=== PATIENT | female | born 1960 | race Two or more races ===

== ENCOUNTER → 2020-09-22 | Outpatient (CLI) | payer OTHER ==
[2020-09-23 08:06] LABS: RPR Non Reactive (Non Reactive)
== END | disposition home or self-care (01) ==
LOC: LAB 09:13
PROVIDERS: ATTEND Obstetrics & Gynecology
DX: Z20.2 Contact with and (suspected) exposure to infections with a predominantly sexual mode of transmission (principal)
CPT/HCPCS: 36415; 86592; 86703; 86704; 86705; 86706; 87340

== ENCOUNTER 2020-10-01 08:39 | Emergency (ER) | payer OTHER ==
[~2020-10-01] VITALS: Ht 180.3 cm; Wt 81.6 kg
[2020-10-01 09:33] LABS: Urine Bacteria FEW /hpf (None Seen); Urine Blood Negative /uL (Negative); Urine Specific Gravity 1.019 (1.001-1.035); Urine WBC <1 /hpf (0 - 5)
[2020-10-01 09:45] LABS: Basophils # (auto) 0.1 10 ^3/uL (0-0.2); Basophils % (auto) 1.4 % (0.0-2.0); Eosinophils # (auto) 0 10 ^3/uL (0-0.8); Eosinophils % (auto) 0.8 % (0.0-7.0); Hematocrit 39.7 % (36.0-46.0); Hemoglobin 13.3 g/dL (12.2-16.2); Lymphocytes % (auto) 37.7 % (10.0-50.0); Mean Corpuscular Hemoglobin 29.6 pg (28.0-32.0); Mean Corpuscular Hgb Conc. 33.6 g/dL (32.0-36.0); Mean Corpuscular Volume 88.2 fL (80.0-100.0); Monocytes # (auto) 0.3 10 ^3/uL (0-1.3); Monocytes % (auto) 6.1 % (0.0-12.0); Neutrophils # (auto) 2.9 10 ^3/uL (1.6-8.6); Nucleated Red Blood Cells % 0.1 %; Platelet Count (auto) 343 10^3/uL (140-450); White Blood Cell 5.3 10^3/uL (4.4-10.8)
[2020-10-01 10:00] LABS: Albumin 3.8 g/dL (3.4-5.0); Potassium 3.2 mmol/L (3.5-5.1)
[2020-10-01 10:04] LABS: BUN/Creatinine Ratio 12.9; Bilirubin, Total 0.6 mg/dL (0.2-1.0); Total Protein 8.3 g/dL (6.4-8.2)
[2020-10-01 10:25] VITALS: BP 170/95
[2020-10-01] MEDS ORDERED: KETOROLAC TROMETH 60MG/2ML VIAL IM ONE (11:00)
[2020-10-01] MEDS ORDERED: POTASSIUM CHL 20 Meq TABLET PO ONE (12:15)
== END 2020-10-01 12:13 | disposition home or self-care (01) ==
LOC: ER 08:39
DX: S39.011A Strain of muscle, fascia and tendon of abdomen, initial encounter (principal); K76.0 Fatty (change of) liver, not elsewhere classified; I10 Essential (primary) hypertension; X58.XXXA Exposure to other specified factors, initial encounter; Y93.89 Activity, other specified; Y92.89 Other specified places as the place of occurrence of the external cause; Y99.8 Other external cause status
CPT/HCPCS: 36415; 74176; 76705; 80053; 81001; 85025; 93005; 96372; 99285; J1885

== ENCOUNTER 2020-11-25 16:26 | Emergency (ER) | payer OTHER ==
[~2020-11-25] VITALS: Ht 149.9 cm; Wt 83.5 kg
[2020-11-25 18:56] VITALS: BP 125/70
[2020-11-25] MEDS ORDERED: KETOROLAC TROMETH 60MG/2ML VIAL IM ONE (19:30)
== END 2020-11-25 19:53 | disposition home or self-care (01) ==
LOC: ER 16:26
DX: S83.91XA Sprain of unspecified site of right knee, initial encounter (principal); E66.8 Other obesity; Z68.37 Body mass index [BMI] 37.0-37.9, adult; I10 Essential (primary) hypertension; W18.40XA Slipping, tripping and stumbling without falling, unspecified, initial encounter; Y93.89 Activity, other specified; Y92.89 Other specified places as the place of occurrence of the external cause; Y99.8 Other external cause status
CPT/HCPCS: 73562; 96372; 99283; J1885

== ENCOUNTER 2024-05-09 08:28 | Inpatient (IN) | payer BC, MEDICARE, OTHER ==
[~2024-05-09] VITALS: Ht 149.9 cm; Wt 94.2 kg
--- NOTE | 2024-05-09 08:39 | ED.PDOC ---
HPI Comments 64 y.o female with PMH of HTN, presents to the ED for a chief complaint of substernal chest pain radiating to her left arm associated with nausea that started 2-3 days ago. Patient reports pain is constant and worsened today while getting ready for work. Patient has had similar pain in the past, was seen by a gluing machine operator but never had an angiogram done. Patient denies any vomiting, abdominal pain, fever, chills, or leg swelling. No history of tobacco, substance or alcohol use. Time Seen by MD: 08:32 Primary Care Provider: CARINA Clifford Notes: Nurses Notes, Medications, Allergies Allergies: Coded Allergies: NO KNOWN ALLERGIES (Unverified , 10/01/20) Information Source: Patient Mode of Arrival: Ambulatory Severity: Moderate Timing: Days Duration: Since onset Location: Substernal Radiation: Arm (L) Onset: At Rest Cardiac Risk Factors: HTN PE Risk Factors: None History of: Similar pain in past Modifying Factors: Nothing Associated Signs and Symptoms: N/V Past Medical History PAST MEDICAL HISTORY: HTN Surgical History: Denies all surgeries KITCHEN MECHANIC History: Denies all KITCHEN MECHANIC Hx Family History Family History: Reviewed,noncontributory to illness Social History Smoker: Non-Smoker Alcohol: Denies ETOH Use Drugs: Denies Drug Use Lives In: Home Constitutional: denies: chills, diaphoresis, fatigue, fever, malaise, sweats, weakness, others EENTM: denies: blurred vision, double vision, ear bleeding, ear discharge, ear drainage, ear pain, ear ringing, eye pain, eye redness, hearing loss, mouth pain, mouth swelling, nasal discharge, nose bleeding, nose congestion, nose pain, photophobia, tearing, throat pain, throat swelling, voice changes, others Respiratory: denies: cough, hemoptysis, orthopnea, SOB at rest, shortness of breath, SOB with excertion, stridor, wheezing, others Cardiovascular: reports: chest pain, left arm pain; denies: dizzy spells, diaphoresis, Dyspnea on exertion, edema, irregular heart beat, lightheadedness, palpitations, PND, syncope, others Gastrointestinal: reports: nausea; denies: abdomen distended, abdominal pain, blood streaked bowels, constipated, diarrhea, dysphagia, difficulty swallowing, hematemesis, melena, poor appetite, poor fluid intake, rectal bleeding, rectal pain, vomiting, others Genitourinary: denies: abnormal vagina bleeding, burning, dyspareunia, dysuria, flank pain, frequency, hematuria, incontinence, pain, , vagina discharge, urgency, others Neurological: denies: dizziness, fainting, headache, left sided numbness, left sided weakness, numbness, paresthesia, pre-existing deficit, right sided numbness, right sided weakness, seizure, speech problems, tingling, tremors, weakness, others Musculoskeletal: denies: back pain, gout, joint pain, joint swelling, muscle pain, muscle stiffness, neck pain, others Integumetry: denies: bruises, change in color, change in hair/nails, dryness, laceration, lesions, lumps, rash, wounds, others Allergic/Immunocompromised: denies: Difficulty Healing, Frequent Infections, Hives, Itching, others Hematologic/Lymphatic: denies: anemia, blood clots, easy bleeding, easy bruising, swollen glands, others Endocrine: denies: excessive hunger, excessive sweating, excessive thirst, excessive urination, flushing, intolerance to cold, intolerance to heat, unexplained weight gain, unexplained weight loss, others Psychiatric: denies: anxiety, bipolar disorder, depression, hopeless, panic dis order, schizophrenia, sleepless, suicidal, others All Other Systems: Reviewed and Negative Physical Exam General Appearance: Moderate Distress HEENT: Normal ENT Inspection, Pharynx Normal, TMs Normal Neck: Full Range of Motion, Non-Tender, Normal, Normal Inspection Respiratory: Chest Non-Tender, Lungs Clear, No Accessory Muscle Use, No Respiratory Distress, Normal Breath Sounds Cardiovascular: No Edema, No JVD, No Murmur, No Gallop, Normal Peripheral Pulses, Regular Rate/Rhythm Breast Exam: Deferred Gastrointestinal: No Organomegaly, Non Tender, No Pulsatile Mass, Normal Bowel Sounds, Soft Genitalia: Deferred Pelvic: Deferred Rectal: Deferred Extremities: No calf tenderness, Normal capillary refill, Normal inspection, Normal range of motion, Non-tender, No pedal edema Musculoskeletal : Apperance: Normal Neurologic: Alert, assistant program manager II-XII nml as Tested, No Motor Deficits, Normal Affect, Normal Mood, No Sensory Deficits Cerebellar Function: NOT DONE Reflexes: NOT DONE Skin: Dry, Normal Color, Warm Peripheral Pulses: 3+ Radial (R), 3+ Radial (L) Lymphatic: No Adenopathy Was a procedure done? Was a procedure done?: No CP Differential Dx Differential Diagnosis: A-fib, A-Flutter, Angina, Anxiety / Panic Attack, Atrial Dysrhythmia, Electrolyte Disorder, N/A Differential Diagnosis: Angina, Chest Wall Pain, Costochondritis, Myocardial Infarction, Pericarditis X-Ray, Labs, Meds, VS Vital Signs Date Time Temp Pulse Resp B/P (MAP) Pulse Ox O2 Delivery O2 Flow Rate FiO2 05/09/24 08:51 159/83 05/09/24 08:47 86 05/09/24 08:47 98.9 86 18 159/83 (108) 99 98.9 05/09/24 08:34 96 05/09/24 08:30 98.6 97 18 155/84 (107) 97 98.6 05/09/24 08:30 98.6 97 18 155/84 (107) 99 Lab Test 05/09/24 08:50 05/09/24 08:39 Range/Units Urine Color Light-yellow Yellow Urine Clarity Clear Clear Urine pH 6.5 5.0-9.0 Urine Specific [place] 1.018 1.001-1.035 Urine Protein Trace H Negative Urine Ketones Negative Negative Urine Blood Negative Negative /uL Urine Nitrite Negative Negative Urine Bilirubin Negative Negative Urine Urobilinogen Normal Negative mg/dL Urine Leukocyte Esterase Negative Negative /uL Urine RBC 2 0 - 4 /hpf Urine WBC <1 0 - 5 /hpf Urine Squamous Epithelial Cells Few <5 /hpf Urine Bacteria None seen None Seen /hpf Urine Glucose Normal Normal mg/dL White Blood Count 6.3 4.4-10.8 10^3/uL Red Blood Count 4.59 4.0-5.20 10^6/uL Hemoglobin 13.7 12.2-16.2 g/dL Hematocrit 40.2 36.0-46.0 % Mean Corpuscular Volume 87.8 80.0-100.0 fL Mean Corpuscular Hemoglobin 29.8 28.0-32.0 pg Mean Corpuscular Hemoglobin Concent 34.0 32.0-36.0 g/dL Red Cell Distribution Width 13.6 11.8-14.3 % Platelet Count 365 140-450 10^3/uL Mean Platelet Volume 7.2 6.9-10.8 fL Neutrophils (%) (Auto) 48.5 37.0-80.0 % Lymphocytes (%) (Auto) 42.3 10.0-50.0 % Monocytes (%) (Auto) 7.0 0.0-12.0 % Eosinophils (%) (Auto) 1.3 0.0-7.0 % Basophils (%) (Auto) 0.9 0.0-2.0 % Neutrophils # (Auto) 3.1 1.6-8.6 10 ^3/uL Lymphocytes # (Auto) 2.7 0.4-5.4 10 ^3/uL Monocytes # (Auto) 0.4 0-1.3 10 ^3/uL Eosinophils # (Auto) 0.1 0-0.8 10 ^3/uL Basophils # (Auto) 0.1 0-0.2 10 ^3/uL Nucleated Red Blood Cells 0.1 % Sodium Level 140 136-145 mmol/L Potassium Level 3.0 L 3.5-5.1 mmol/L Chloride Level 106 98-107 mmol/L Carbon Dioxide Level 27 20-31 mmol/L Anion Gap 7 5-15 Blood Urea Nitrogen 13 9-23 mg/dL Creatinine 0.82 0.550-1.02 mg/dL Glomerular Filtration Rate Calc 79 >90 mL/min BUN/Creatinine Ratio 15.9 10.0-20.0 Serum Glucose 123 H 74-106 mg/dL Calcium Level 10.3 8.7-10.4 mg/dL Troponin I High Sensitivity < 3 L </=34 ng/L Current Medications Medications (Trade) Dose Ordered Sig/Lc Route Start Time Stop Time Status Last Admin Aspirin 325 mg ONCE ONCE PO 05/09/24 08:45 05/09/24 08:46 DC 05/09/24 08:49 Nitroglycerin (Ntrostat Sublingual) 0.4 mg ONCE ONCE SL 05/09/24 08:45 05/09/24 08:46 DC 05/09/24 08:51 Patient alert. Complaining of chest pain. Has risk factors for coronary artery disease. Vitals stable. Answering all questions. EKG reviewed does not show any acute changes. Was given aspirin. Reviewed her history. Explained to the patient. Continue cardiac monitoring. Time of 1ST Reevaluation: 09:30 Reevaluation 1ST: Unchanged Patient Education/Counseling: Diagnosis, Treatment, Prognosis Family Education/Counseling: No Family Present Additional Information Ordered Test-PHA and LAB Reviewed Results- LAB, US echo Interpreted [id number] and agree with radiology Discuss Tx/Results-medical personnel, pt Departure 1 Departure Time of Disposition: 08:42 Impression: Primary Impression: Chest pain of unknown etiology Disposition: ADMITTED INPATIENT Admit to: Med Surg Condition: Guarded Critical Care Note Critical Care Time?: Yes (45 min-critical care time only) Stability Stability form required: No Heart Score Heart Score: Heart Score Response (Comments) Value History Slightly Suspicious 0 EKG Normal 0 Age >65 2 Risk Factors >3 or Hx ASHD 2 Troponin Normal limit 0 Total 4 I personally scribed for KERA JUAN MD ([email or web address]) on 05/09/24 at 08:39. Electronically submitted by Lawanda Salvador ([facility]). I personally scribed for KERA JUAN MD ([email or web address]) on 05/09/24 at 10:57. Electronically submitted by Lawanda Salvador ([facility]). KERA JUAN MD May 09, 2024 08:39
[2024-05-09] MEDS: ASPirin 325 MG TAB PO ONE (08:49)
[2024-05-09 08:51] LABS: Basophils # (auto) 0.1 10 ^3/uL (0-0.2); Basophils % (auto) 0.9 % (0.0-2.0); Eosinophils # (auto) 0.1 10 ^3/uL (0-0.8); Eosinophils % (auto) 1.3 % (0.0-7.0); Hematocrit 40.2 % (36.0-46.0); Hemoglobin 13.7 g/dL (12.2-16.2); Lymphocytes # (auto) 2.7 10 ^3/uL (0.4-5.4); Lymphocytes % (auto) 42.3 % (10.0-50.0); Mean Corpuscular Hemoglobin 29.8 pg (28.0-32.0); Mean Corpuscular Volume 87.8 fL (80.0-100.0); Monocytes # (auto) 0.4 10 ^3/uL (0-1.3); Neutrophils # (auto) 3.1 10 ^3/uL (1.6-8.6); Neutrophils % (auto) 48.5 % (37.0-80.0); Nucleated Red Blood Cells % 0.1 %; Platelet Count (auto) 365 10^3/uL (140-450); Red Blood Cells 4.59 10^6/uL (4.0-5.20); Red Cell Distribution Width 13.6 % (11.8-14.3); White Blood Cell 6.3 10^3/uL (4.4-10.8)
[2024-05-09] MEDS: NITROGLYCERIN 0.4 MG SL TAB SL ONE (08:51)
[2024-05-09 08:58] LABS: Urine Bacteria None Seen /hpf (None Seen)
[2024-05-09 09:27] LABS: Chloride 106 mmol/L (98-107); Sodium 140 mmol/L (136-145)
[2024-05-09 09:28] LABS: Anion Gap 7 (5-15); Calcium 10.3 mg/dL (8.7-10.4); Carbon Dioxide 27 mmol/L (20-31)
[2024-05-09 09:33] LABS: BUN/Creatinine Ratio 15.9 (10.0-20.0); Blood Urea Nitrogen 13 mg/dL (9-23); Glucose 123 mg/dL (74-106)
[2024-05-09 09:36] LABS: Urine Blood Negative /uL (Negative); Urine Clarity Clear (Clear); Urine Color Light-Yellow (Yellow); Urine Protein, UAD TRACE (Negative); Urine Specific Gravity 1.018 (1.001-1.035); Urine Urobilinogen Normal (Negative); Urine WBC <1 /hpf (0 - 5); Urine pH 6.5 (5.0-9.0)
[2024-05-09] MEDS ORDERED: MORPHINE SULFATE INJ 2 MG/ml SYRG IV PRN (13:00)
[2024-05-09] MEDS ORDERED: ONDANSETRON HCL 4 MG/2 ML VIAL IV PRN (13:00)
[2024-05-09] MEDS ORDERED: NITROGLYCERIN 0.4 MG SL TAB SL PRN (13:00)
--- NOTE | 2024-05-09 13:10 | DVHHP2 ---
History of Present Illness Reason for Visit: chest pain History of Present Illness Mary العراقي is a 64YO F with pmHx of COPD, HLD, and HTN who presents to the ED with chest pain x3 days. Patient reports that the chest pain radiates to the left arm it is stabbing in nature intermittent and currently 4/10 pain. Patient also reports that she has ongoing palpitations for the last 3 years in which she was seeing a catalyst operator in [facility] for, however upon moving up here she has not established a catalyst operator in the last 4 months. 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 Patient reports that she is compliant with her medications. Reports that her blood pressure systolics are around the 140s. She also reports that her catalyst operator in [facility] advised her that she has hardening of the arteries. Patient reports that resting makes the pain better. Patient denies shortness of breath, fever, chills, abdominal pain, headache, lightheadedness, and dizziness. Cardiovascular: HTN, hyperipidemia Pulmonary: COPD Past Surgical History: Total knee replacement (right) Family History: CVA (mom) Smoke: Quit ALCOHOL: none Drugs: None Lives: with Family Domestic Violence: Neg Review of Systems Constitutional: No: Fever, Chills, Sweats, Weakness, Malaise, Other Eyes: No: Pain, Vision change, Conjunctivae inflammation, Eyelid inflammation, Other, Redness ENT: No: Ear pain, Ear discharge, Nose pain, Nose discharge, Nose congestion, Mouth pain, Mouth swelling, Throat pain, Throat swelling, Other Respiratory: No: Cough, Dry, Shortness of breath, SOB with excertion, Wheezing, Hemoptysis, Pleuritic Pain, Sputum, Wheezing, Other Cardiovascular: Chest Pain; No: Palpitations, Orthopnea, Paroxysmal Noc. Dyspnea, Edema, Lt Headedness, Other Gastrointestinal: No: Nausea, Vomiting, Abdominal Pain, Diarrhea, Constipation, Melena, Hematochezia, Other Genitourinary: No Dysuria, No Frequency, No Incontinence, No Hematuria, No Retention, No Other Musculoskeletal: arm pain; No: other, neck pain, shoulder pain, back pain, hand pain, leg pain, foot pain Skin: No: Rash, Lesions, Jaundice, Bruising, Other Neurological: No: Weakness, Numbness, Incoordination, Change in speech, Confusion, Seizures, Other Allergies: Coded Allergies: NO KNOWN ALLERGIES (Unverified , 10/01/20) Medications Current Medications Medications Dose Ordered Sig/Lc Route Start Time Stop Time Status Last Admin Dose Admin Aspirin 81 mg DAILY PO 05/10/24 10:00 UNV Morphine Sulfate 2 mg Q30MP PRN IV 05/09/24 13:00 UNV Acetaminophen 650 mg Q6HP PRN PO 05/09/24 13:00 UNV Lorazepam 0.5 mg Q6HP PRN PO 05/09/24 13:00 UNV Docusate Sodium 100 mg DAILY PO 05/10/24 10:00 UNV Nitroglycerin 0.4 mg Q5MINP PRN SL 05/09/24 13:00 UNV Ondansetron HCl 4 mg Q4HP PRN IV 05/09/24 13:00 UNV Nitroglycerin 0.4 mg Q5MINP PRN SL 05/09/24 13:00 UNV Morphine Sulfate 2 mg Q30M PRN IV 05/09/24 13:00 UNV Exam Vital Signs Vital Signs Date Time Temp Pulse Resp B/P (MAP) Pulse Ox O2 Delivery O2 Flow Rate FiO2 05/09/24 08:51 159/83 05/09/24 08:47 86 05/09/24 08:47 98.9 18 99 98.9 General Appearance: Oriented X3, Cooperative, No acute distress HEENT: Atraumatic, PERRLA, EOMI, Mucous membr. moist/pink Respiratory: Clear to auscultation, Normal air movement Cardiovascular: Regular rate, Normal S1, Normal S2, No murmurs Abdominal: Normal bowel sounds, Soft, No tenderness, No hepatospenomegaly, No masses Extremities: No clubbing, No cyanosis, No edema, Normal pulses, No tenderness/swelling Skin: No rashes, No breakdown, No significant lesion Neuro: Normal gait, Normal speech, Strength at 5/5 X4 ext, Normal tone, Sensation intact Psych/Mental Status: Mental status NL, Mood NL Labs/Xrays Labs Test 05/09/24 08:50 05/09/24 08:39 Range/Units Urine Color Light-yellow Yellow Urine Clarity Clear Clear Urine pH 6.5 5.0-9.0 Urine Specific [place] 1.018 1.001-1.035 Urine Protein Trace H Negative Urine Ketones Negative Negative Urine Blood Negative Negative /uL Urine Nitrite Negative Negative Urine Bilirubin Negative Negative Urine Urobilinogen Normal Negative mg/dL Urine Leukocyte Esterase Negative Negative /uL Urine RBC 2 0 - 4 /hpf Urine WBC <1 0 - 5 /hpf Urine Squamous Epithelial Cells Few <5 /hpf Urine Bacteria None seen None Seen /hpf Urine Glucose Normal Normal mg/dL White Blood Count 6.3 4.4-10.8 10^3/uL Red Blood Count 4.59 4.0-5.20 10^6/uL Hemoglobin 13.7 12.2-16.2 g/dL Hematocrit 40.2 36.0-46.0 % Mean Corpuscular Volume 87.8 80.0-100.0 fL Mean Corpuscular Hemoglobin 29.8 28.0-32.0 pg Mean Corpuscular Hemoglobin Concent 34.0 32.0-36.0 g/dL Red Cell Distribution Width 13.6 11.8-14.3 % Platelet Count 365 140-450 10^3/uL Mean Platelet Volume 7.2 6.9-10.8 fL Neutrophils (%) (Auto) 48.5 37.0-80.0 % Lymphocytes (%) (Auto) 42.3 10.0-50.0 % Monocytes (%) (Auto) 7.0 0.0-12.0 % Eosinophils (%) (Auto) 1.3 0.0-7.0 % Basophils (%) (Auto) 0.9 0.0-2.0 % Neutrophils # (Auto) 3.1 1.6-8.6 10 ^3/uL Lymphocytes # (Auto) 2.7 0.4-5.4 10 ^3/uL Monocytes # (Auto) 0.4 0-1.3 10 ^3/uL Eosinophils # (Auto) 0.1 0-0.8 10 ^3/uL Basophils # (Auto) 0.1 0-0.2 10 ^3/uL Nucleated Red Blood Cells 0.1 % Sodium Level 140 136-145 mmol/L Potassium Level 3.0 L 3.5-5.1 mmol/L Chloride Level 106 98-107 mmol/L Carbon Dioxide Level 27 20-31 mmol/L Anion Gap 7 5-15 Blood Urea Nitrogen 13 9-23 mg/dL Creatinine 0.82 0.550-1.02 mg/dL Glomerular Filtration Rate Calc 79 >90 mL/min BUN/Creatinine Ratio 15.9 10.0-20.0 Serum Glucose 123 H 74-106 mg/dL Calcium Level 10.3 8.7-10.4 mg/dL Troponin I High Sensitivity < 3 L </=34 ng/L EXAM: XY CHEST XRAY 1 VIEW Indication: chest pain Technique: Single frontal view of the chest was obtained Comparison: None FINDINGS: Lines and Tubes: None Lungs: No focal consolidation. Pleura: No effusion. No pneumothorax. Cardiomediastinal contours: Unremarkable Bones: No acute osseous abnormality. IMPRESSION: No acute cardiopulmonary disease. Assessment/Plan Assessment/Plan Assessment/Plan: Atypical chest pain r/o ACS ekg - sr, left anterior fasicular block cxr labs echo acs protocol asa statin ekg am labs am trend trop trop negative ua uds lipid panel tsh cards cx Hypokalemia replete lytes Transaminitis HLD continue home medication - rosuvastatin GI cx HTN continue home medications - amlodipine and losartan COPD monitor no home medications FEN/PPX cardiac diet hl Patient ambulating not indicated for DVT ppx PUD prophylaxis not indicated no history of GERD Labs in a.m. 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 Procedure Category Date Status Time * Cardiology Consult CONS 05/09/24 Transmitted 12:52 Admit ADMIT 05/09/24 Transmitted 12:52 Code Status CODE 05/09/24 Transmitted 12:52 Vital Signs KIMANI 05/09/24 In Process 12:52 Medical Staff Physician KIMANI 05/09/24 In Process 12:52 Cardiac DIET 05/09/24 Transmitted Diet-2gna,Lofat,Lochol Lunch Aspirin Tablet PHA 05/10/24 Logged 10:00 Morphine Sulfate PHA 05/09/24 Logged Injection 13:00 Acetaminophen Tablet PHA 05/09/24 Logged (Tylenol Tablet) 13:00 Lorazepam Tablet PHA 05/09/24 Logged (Ativan Tablet) 13:00 Docusate Sodium PHA 05/10/24 Logged Capsule (Colace 10:00 Complete Blood Count LAB 05/10/24 Verified 04:00 Comprehensive LAB 05/10/24 Verified Metabolic Panel 04:00 Nitroglycerin PHA 05/09/24 Logged Sublingual (Ntrostat 13:00 Ondansetron Hcl PHA 05/09/24 Logged (Zofran) 13:00 Electrocardigram EKG 05/09/24 Logged 12:52 Alum & Mag PHA 05/09/24 Logged Hydrox-Simethicone 13:00 Cardiac KIMANI 05/09/24 In Process Rehabilitation - Outpa Nitroglycerin PHA 05/09/24 Logged Sublingual (Ntrostat 13:00 Morphine Sulfate PHA 05/09/24 Logged Injection 13:00 Notify Of Changes [facility] 05/09/24 In Process From Base 12:52 Merchandising Coordinator For KIMANI 05/09/24 In Process 24 Hours 12:52 Emergency Dysrhythmia [facility] 05/09/24 In Process Protocol 12:52 Rhythm Strips Once [facility] 05/09/24 In Process Every Shift 12:52 Oxygen By Nasal RT 05/09/24 Transmitted Cannula 12:52 Lipid Panel LAB 05/09/24 Verified 13:08 Thyroid Stimulating LAB 05/09/24 Verified Hormone 13:08 Drug Screen LAB 05/09/24 Verified 13:08 Date of Service: May 09, 2024 Billing Provider: UMM HER Common Visit Codes: [id number] INP/OBS CARE (MOD) UMM HER May 09, 2024 13:10
[2024-05-09] MEDS ORDERED: ROSU5TAB24 PO (13:23)
[2024-05-09] MEDS ORDERED: AMLO1TAB23 PO (13:23)
[2024-05-09 13:48] LABS: Triglycerides 139 mg/dL (< 150)
[2024-05-09 13:50] LABS: HDL Cholesterol 54 mg/dL (40-59)
[2024-05-09 13:51] LABS: Cholesterol 236 mg/dL (< 200); LDL Cholesterol 158 mg/dL (< 100)
--- NOTE | 2024-05-09 13:51 | DVH ---
EXAM: XY CHEST XRAY 1 VIEW Indication: chest pain Technique: Single frontal view of the chest was obtained Comparison: None FINDINGS: Lines and Tubes: None Lungs: No focal consolidation. Pleura: No effusion. No pneumothorax. Cardiomediastinal contours: Unremarkable Bones: No acute osseous abnormality. IMPRESSION: No acute cardiopulmonary disease.
[2024-05-09] MEDS: MAALOX PLUS or MAALOX 30 ML PO ONE (17:28)
[2024-05-09] MEDS: POTASSIUM EFFERVESENT TAB 25 MEQ PO ONE (17:28)
[2024-05-09] MEDS: NITROGLYCERIN 0.4 MG SL TAB SL PRN (17:33)
[2024-05-09 18:35] VITALS: O2SAT 100
[2024-05-09] MEDS ORDERED: LOSA-533 PO (19:42)
[2024-05-09 20:00] VITALS: PULSE 64
[2024-05-09] MEDS: ACETAMINOPHEN 325 MG TAB PO PRN (20:33)
[2024-05-09 21:00] VITALS: BP 141/69; PULSE 65; RESP 20; TEMP 98.3; O2SAT 98
[2024-05-09] MEDS: MELATONIN 5 MG TAB PO SCH (21:58)
[2024-05-10] VITALS (8 sets, daily range): BP systolic 119–163; BP diastolic 66–85; PULSE 55–80; RESP 16–20; TEMP 96.7–98.4; O2SAT 97–100
[2024-05-10] MEDS: LORazepam 0.5 MG TAB PO PRN (00:50)
[2024-05-10 07:12] LABS: Basophils # (auto) 0 10 ^3/uL (0-0.2); Basophils % (auto) 0.8 % (0.0-2.0); Eosinophils # (auto) 0.1 10 ^3/uL (0-0.8); Eosinophils % (auto) 2.7 % (0.0-7.0); Hematocrit 37.8 % (36.0-46.0); Hemoglobin 12.8 g/dL (12.2-16.2); Lymphocytes # (auto) 1.6 10 ^3/uL (0.4-5.4); Lymphocytes % (auto) 41.4 % (10.0-50.0); Mean Corpuscular Hemoglobin 29.8 pg (28.0-32.0); Mean Corpuscular Volume 87.7 fL (80.0-100.0); Monocytes # (auto) 0.3 10 ^3/uL (0-1.3); Monocytes % (auto) 7.6 % (0.0-12.0); Neutrophils # (auto) 1.8 10 ^3/uL (1.6-8.6); Neutrophils % (auto) 47.5 % (37.0-80.0); Nucleated Red Blood Cells % 0.4 %; Platelet Count (auto) 303 10^3/uL (140-450); Red Blood Cells 4.31 10^6/uL (4.0-5.20); Red Cell Distribution Width 13.4 % (11.8-14.3); White Blood Cell 3.8 10^3/uL (4.4-10.8)
[2024-05-10 07:19] LABS: Alanine Aminotransferase 20 U/L (7-40); Albumin 4.4 g/dL (3.2-4.8); Alkaline Phosphatase 115 U/L (46-116); Anion Gap 8 (5-15); Aspartate Aminotransferase 14 U/L (13-40); BUN/Creatinine Ratio 13.2 (10.0-20.0); Bilirubin, Total 0.7 mg/dL (0.2-1.0); Blood Urea Nitrogen 9 mg/dL (9-23); Carbon Dioxide 29 mmol/L (20-31); Chloride 103 mmol/L (98-107); Potassium 3.5 mmol/L (3.5-5.1); Sodium 140 mmol/L (136-145); Total Protein 7.5 g/dL (5.7-8.2)
[2024-05-10 07:22] LABS: Glucose 114 mg/dL (74-106)
[2024-05-10] MEDS: DOCUSATE SOD 100 MG CAP PO SCH (09:11)
[2024-05-10] MEDS: ASPirin 81 mg TAB PO SCH (09:11)
[2024-05-10] MEDS: LOSARTAN POTASSIUM 25 MG TAB PO SCH ×2 (09:12→22:00)
[2024-05-10] MEDS: amLODIPine BESYLATE 5 MG TAB PO SCH (10:12)
--- NOTE | 2024-05-10 13:04 | DVHSR ---
APPROVED REPORT EXAM: Two-dimensional and M-mode echocardiogram with Doppler and color Doppler. Blood Pressure: 126/70 mmHg INDICATION EF RISK FACTORS Obesity: Height: 4'11, Weight: 210 DIMENSIONS LVDd4.5 (3.8-5.7cm)LA (2D)3.0 (1.9-4.0cm)Aortic Root2.5 (2.0-3.7cm) LVDs2.9 (2.5-4.0cm)LA (MM) (1.9-4.0cm)Aortic Cusp Exc1.0 (1.5-2.0cm) EF (%) 60.0 (55-70%)Rt. Atrium3.2 (1.9-4.0cm)Asc. Aorta3.3 cm IVSd0.9 (0.7-1.1cm)RV (D) (1.8-2.4cm) PWd0.7 (0.7-1.1cm) Mitral Valve MitralMitral Stenosis E wave0.61m/sMV Mean GR.mmHg A wave0.99m/sMV Peak GR.mmHg E/A ratio0.62D MVAcm2 DECEL [id number] 1/2 Timems Aortic Valve Aortic ValveAortic Stenosis V11.17m/Eulogio Mean GR.18mmHg V22.76m/Eulogio Peak GR.31mmHg LVOT Diameter1.9 (1.8-2.4cm)Doppler AVA1.20cm2 AI P 1/2 Cfrm304.52ms Pulmonic Valve V20.88m/s Tricuspid Valve TR Velocity2.04m/s [id number] Conclusion lvef 60% by visual estimate moderate LVH mild aortic regurg
--- NOTE | 2024-05-10 14:53 | DVHINCON2 ---
GI Consult Consult Note GI consult note Date of Consultation: 05/10/2024 Chief Complaint: Elevated LFTs Referring Physician: Dr. Galicia H&P: 64-year-old female admitted with chest pain, admits to feeling better at this time No abdominal pain Patient has nausea no vomiting. No hematemesis No history of GERD. No EGD in past Status post colonoscopy more than 10 years ago, diagnosed with diverticulosis No blood thinners Past Medical History: Cardiovascular: HTN, hyperipidemia Pulmonary: COPD Past Surgical History: Right total knee replacement Social History: NO smoking, drinking ETOH and use of illegal drugs. Family History: Noncontributory Review of Systems: Constitutional: no fever, chill, weight loss HEENT: no eye pain, no hearing loss, no oral lesion, no scleral icterus Heart: no chest pain, no chest pressure Lung: no cough, no dyspnea with exertion Abdomen: see HPI Physical exam: General: NAD, AAOX3 Chest: lung davey clear to auscultation Heart: RRR, no murmur Abdomen: non-distended, no tenderness to palpation, +BS Labs: Labs Test 05/10/24 06:17 05/09/24 08:50 05/09/24 08:39 Range/Units White Blood Count 3.8 #L 4.4-10.8 10^3/uL Red Blood Count 4.31 4.0-5.20 10^6/uL Hemoglobin 12.8 12.2-16.2 g/dL Hematocrit 37.8 36.0-46.0 % Mean Corpuscular Volume 87.7 80.0-100.0 fL Mean Corpuscular Hemoglobin 29.8 28.0-32.0 pg Mean Corpuscular Hemoglobin Concent 34.0 32.0-36.0 g/dL Red Cell Distribution Width 13.4 11.8-14.3 % Platelet Count 303 140-450 10^3/uL Mean Platelet Volume 7.6 6.9-10.8 fL Neutrophils (%) (Auto) 47.5 37.0-80.0 % Lymphocytes (%) (Auto) 41.4 10.0-50.0 % Monocytes (%) (Auto) 7.6 0.0-12.0 % Eosinophils (%) (Auto) 2.7 0.0-7.0 % Basophils (%) (Auto) 0.8 0.0-2.0 % Neutrophils # (Auto) 1.8 1.6-8.6 10 ^3/uL Lymphocytes # (Auto) 1.6 0.4-5.4 10 ^3/uL Monocytes # (Auto) 0.3 0-1.3 10 ^3/uL Eosinophils # (Auto) 0.1 0-0.8 10 ^3/uL Basophils # (Auto) 0 0-0.2 10 ^3/uL Nucleated Red Blood Cells 0.4 % Sodium Level 140 136-145 mmol/L Potassium Level 3.5 3.5-5.1 mmol/L Chloride Level 103 98-107 mmol/L Carbon Dioxide Level 29 20-31 mmol/L Anion Gap 8 5-15 Blood Urea Nitrogen 9 9-23 mg/dL Creatinine 0.68 0.550-1.02 mg/dL Glomerular Filtration Rate Calc 96 >90 mL/min BUN/Creatinine Ratio 13.2 10.0-20.0 Serum Glucose 114 H 74-106 mg/dL Calcium Level 10.0 8.7-10.4 mg/dL Total Bilirubin 0.7 0.2-1.0 mg/dL Aspartate Amino Transferase (AST) 14 13-40 U/L Alanine Aminotransferase (ALT) 20 7-40 U/L Alkaline Phosphatase 115 46-116 U/L Total Protein 7.5 5.7-8.2 g/dL Albumin 4.4 3.2-4.8 g/dL Urine Color Light-yellow Yellow Urine Clarity Clear Clear Urine pH 6.5 5.0-9.0 Urine Specific [place] 1.018 1.001-1.035 Urine Protein Trace H Negative Urine Ketones Negative Negative Urine Blood Negative Negative /uL Urine Nitrite Negative Negative Urine Bilirubin Negative Negative Urine Urobilinogen Normal Negative mg/dL Urine Leukocyte Esterase Negative Negative /uL Urine RBC 2 0 - 4 /hpf Urine WBC <1 0 - 5 /hpf Urine Squamous Epithelial Cells Few <5 /hpf Urine Bacteria None seen None Seen /hpf Urine Glucose Normal Normal mg/dL Troponin I High Sensitivity < 3 L </=34 ng/L Triglycerides Level 139 < 150 mg/dL Cholesterol Level 236 H < 200 mg/dL LDL Cholesterol 158 H < 100 mg/dL HDL Cholesterol 54 40-59 mg/dL Thyroid Stimulating Hormone (TSH) 1.56 0.55-4.78 uIU/mL Imaging: Assessment: Chest pain Diverticulosis Plan: Discussed with Dr. Irving Cardiology consult pending Advance diet as tolerated Outpatient follow-up in GI clinic for elective colonoscopy, next available appointment Thank you for this consult Date of Service: May 10, 2024 Billing Provider: NALINI VENEGAS Common Visit Codes: CONSULT ONLY Consultation Codes: [id number] CONSULT <45MIN NALINI VENEGAS May 10, 2024 14:53
--- NOTE | 2024-05-10 17:25 | DVHPN2 ---
Progress Note - Dictate Date Seen: May 10, 2024 Medical Necessity Reason Pt with a Central, PICC or Fol: No vital signs Vital Sign Date Time Temp Pulse Resp B/P (MAP) Pulse Ox O2 Delivery O2 Flow Rate FiO2 05/10/24 13:00 98.2 80 18 144/85 (104) 97 98.2 05/10/24 08:30 Room Air* 0 21 Total Intake and Output 05/09/24 05/09/24 05/10/24 15:00 23:00 07:00 Intake Total 1000 ml Balance 1000 ml medications Current Medications Medications Dose Ordered Sig/Lc Route Start Time Stop Time Status Last Admin Dose Admin Aspirin 81 mg DAILY PO 05/10/24 10:00 05/10/24 09:11 81 MG Morphine Sulfate 2 mg Q30MP PRN IV 05/09/24 13:00 Acetaminophen 650 mg Q6HP PRN PO 05/09/24 13:00 05/10/24 16:19 650 MG Lorazepam 0.5 mg Q6HP PRN PO 05/09/24 13:00 05/10/24 16:26 0.5 MG Docusate Sodium 100 mg DAILY PO 05/10/24 10:00 05/10/24 09:11 100 MG Nitroglycerin 0.4 mg Q5MINP PRN SL 05/09/24 13:00 05/10/24 09:11 0.4 MG Ondansetron HCl 4 mg Q4HP PRN IV 05/09/24 13:00 Nitroglycerin 0.4 mg Q5MINP PRN SL 05/09/24 13:00 UNV Morphine Sulfate 2 mg Q30M PRN IV 05/09/24 13:00 UNV Melatonin 5 mg HS PO 05/09/24 22:00 05/09/24 21:58 5 MG Amlodipine Besylate 10 mg DAILY PO 05/10/24 10:00 05/10/24 10:12 10 MG Losartan Potassium 25 mg BID PO 05/10/24 22:00 UNV Atorvastatin Calcium 40 mg HS PO 05/10/24 22:00 UNV Pantoprazole Sodium 40 mg DAILY@0600 PO 05/11/24 06:00 UNV Acetaminophen 650 mg Q6HP PRN PO 05/10/24 17:30 UNV Acetaminophen/ Hydrocodone Bitart 1 tab Q4HPRN PRN PO 05/10/24 17:30 UNV Morphine Sulfate 2 mg Q3HPRN PRN IV 05/10/24 17:30 UNV Nitroglycerin 0.4 mg Q5MINP PRN SL 05/10/24 17:30 UNV objective General Appearance: alert, no distress HEENT: EOMI, PERRLA, normal external inspect of ears, no icterus, no nasal drainage Neck: no carotid bruit, no jugular venous distention (JVD), no lymphadenopathy Chest: normal thorax Respiratory: clear to auscultation, normal air movement Cardiovascular: regular rate and rhythm, no diastolic murmur, no jugular venous distention (JVD), no rub, no systolic murmur Abdominal: soft, no hepatomegaly, no mass, no splenomegaly, no tenderness Genitourinary: grossly normal external Musculoskeletal: no joint tenderness, no swelling Extremities: normal pulses, no calf tenderness, no clubbing, no cyanosis, no edema Skin: no bruising, no jaundice, no rash Neurological: alert, No focal deficit laboratory and microbiology Laboratory Tests 05/10/24 06:17 Test 05/10/24 06:17 Range/Units Serum Glucose 114 H 74-106 mg/dL Problem List 1. Chest pain Monitor, cardiology consult, echocardiogram 2. COPD Monitor, prn med neb tx, DVT prophylaxis 3. HLD Monitor, lipid panel, restart home meds 4. Morbid obesity Monitor, PPI 5. Uncontrolled HTN Monitor, antihypertensives Assessment/Plan Subjective Patient is awake and alert. Objective Patient was admitted for chest pain. Troponin levels are negative. Patient has complaints of headache most likely related to nitro and uncontrolled hypertension. Patient's cholesterol was 236 and LDL was over 150. Plan Adjust blood pressure medications. Nitro as needed. Cardiology consult. Echocardiogram pending. Start medication for high cholesterol. Plan discussed with: Patient, Other ROSALIND FLETCHER NP May 10, 2024 17:25
[2024-05-10] MEDS ORDERED: NITROGLYCERIN 0.4 MG SL TAB SL PRN (17:30)
[2024-05-10] MEDS ORDERED: MORPHINE SULFATE INJ 2 MG/ml SYRG IV PRN (17:30)
[2024-05-10] MEDS ORDERED: LOSA100T25 PO (17:55)
[2024-05-10] MEDS ORDERED: hydrALAZINE HCL 20 MG/ML VL IV PRN (18:00)
[2024-05-10] MEDS: HYDROcodone-ACET 5/325MG TAB PO PRN (20:21)
[2024-05-10] MEDS: ATORVASTATIN 20 MG TAB PO SCH (22:27)
[2024-05-10] MEDS: ACETAMINOPHEN 325 MG TAB PO PRN (22:28)
[2024-05-11] VITALS (7 sets, daily range): BP systolic 105–135; BP diastolic 60–87; PULSE 58–69; RESP 16–20; TEMP 36.7; O2SAT 96–100
--- NOTE | 2024-05-11 06:56 | ECG ---
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
[2024-05-11] MEDS: PANTOPRAZOLE 40 MG TAB PO SCH (08:04)
[2024-05-11] MEDS: MORPHINE SULFATE 4 MG/ML SYR/VIAL IV PRN (09:26)
--- NOTE | 2024-05-11 13:39 | DVHDS2 ---
Discharge Summary Date of Admission May 09, 2024 at 12:52 Date of Discharge: May 11, 2024 Labs/Diagnostic Data: Laboratory Results Test 05/10/24 06:17 05/09/24 08:50 05/09/24 08:39 White Blood Count 3.8 10^3/uL (4.4-10.8) Red Blood Count 4.31 10^6/uL (4.0-5.20) Hemoglobin 12.8 g/dL (12.2-16.2) Hematocrit 37.8 % (36.0-46.0) Mean Corpuscular Volume 87.7 fL (80.0-100.0) Mean Corpuscular Hemoglobin 29.8 pg (28.0-32.0) Mean Corpuscular Hemoglobin Concent 34.0 g/dL (32.0-36.0) Red Cell Distribution Width 13.4 % (11.8-14.3) Platelet Count 303 10^3/uL (140-450) Mean Platelet Volume 7.6 fL (6.9-10.8) Neutrophils (%) (Auto) 47.5 % (37.0-80.0) Lymphocytes (%) (Auto) 41.4 % (10.0-50.0) Monocytes (%) (Auto) 7.6 % (0.0-12.0) Eosinophils (%) (Auto) 2.7 % (0.0-7.0) Basophils (%) (Auto) 0.8 % (0.0-2.0) Neutrophils # (Auto) 1.8 10 ^3/uL (1.6-8.6) Lymphocytes # (Auto) 1.6 10 ^3/uL (0.4-5.4) Monocytes # (Auto) 0.3 10 ^3/uL (0-1.3) Eosinophils # (Auto) 0.1 10 ^3/uL (0-0.8) Basophils # (Auto) 0 10 ^3/uL (0-0.2) Nucleated Red Blood Cells 0.4 % Sodium Level 140 mmol/L (136-145) Potassium Level 3.5 mmol/L (3.5-5.1) Chloride Level 103 mmol/L (98-107) Carbon Dioxide Level 29 mmol/L (20-31) Anion Gap 8 (5-15) Blood Urea Nitrogen 9 mg/dL (9-23) Creatinine 0.68 mg/dL (0.550-1.02) Glomerular Filtration Rate Calc 96 mL/min (>90) BUN/Creatinine Ratio 13.2 (10.0-20.0) Serum Glucose 114 mg/dL (74-106) Calcium Level 10.0 mg/dL (8.7-10.4) Total Bilirubin 0.7 mg/dL (0.2-1.0) Aspartate Amino Transferase (AST) 14 U/L (13-40) Alanine Aminotransferase (ALT) 20 U/L (7-40) Alkaline Phosphatase 115 U/L (46-116) Total Protein 7.5 g/dL (5.7-8.2) Albumin 4.4 g/dL (3.2-4.8) Urine Color Light-yellow (Yellow) Urine Clarity Clear (Clear) Urine pH 6.5 (5.0-9.0) Urine Specific [place] 1.018 (1.001-1.035) Urine Protein Trace (Negative) Urine Ketones Negative (Negative) Urine Blood Negative /uL (Negative) Urine Nitrite Negative (Negative) Urine Bilirubin Negative (Negative) Urine Urobilinogen Normal mg/dL (Negative) Urine Leukocyte Esterase Negative /uL (Negative) Urine RBC 2 /hpf (0 - 4) Urine WBC <1 /hpf (0 - 5) Urine Squamous Epithelial Cells Few /hpf (<5) Urine Bacteria None seen /hpf (None Seen) Urine Glucose Normal mg/dL (Normal) Troponin I High Sensitivity < 3 ng/L (</=34) Triglycerides Level 139 mg/dL (< 150) Cholesterol Level 236 mg/dL (< 200) LDL Cholesterol 158 mg/dL (< 100) HDL Cholesterol 54 mg/dL (40-59) Thyroid Stimulating Hormone (TSH) 1.56 uIU/mL (0.55-4.78) Other Laboratory Tests 05/10/24 06:17 Brief Hx & Hospital Course: Patient was admitted for chest pain. Troponin levels are negative. Patient was seen by cardiology. Patient had uncontrolled blood pressure. Blood pressure medications were adjusted. EKG had no acute findings. Patient was cleared for discharge by cardiology. She will follow-up with her PCP in 1 week. The patient received proper medical treatment and medications. Vital signs, Imaging and Laboratory Work was monitored. All consults recommendations were followed as provided. There were no complaints or new complaints upon discharge, all questions and concerns were answered. Patient was advised to return to the ER or call 911 if any headaches, dizziness, shortness of breath, chest pain, bleeding, fevers, or worsening of medical condition. Patient/Family was counseled about treatment plan, medications, possible side effects, patientverbalized understanding. All questions were answered to the best of my ability. The patient symptoms improved and they are okay to be DC. Condition at Discharge: Stable Final Diagnosis/Problems List Chest pain COPD HLD Morbid obesity Uncontrolled HTN Discharge Disposition: Home Discharge Instruct/Medications Follow Up/Referral: pcp 1 week Discharge Statement: "Patient was advised to return to the ER or call 911 if any headaches, dizziness, shortness of breath, chest pain, abdominal pain, bleeding, fevers, or worsening of medical condition. Patient was counseled about treatment plan, medications, possible side effects, patientverbalized understanding. All questions were answered to the best of my ability. This discharge took greater then 30 minutes in planning, reviewing documentation, counseling the patient, and discussing with other team members." ASSESSMENT ASSESSMENT Assessment ROSALIND FLETCHER NP May 11, 2024 13:39
[2024-05-11] MEDS ORDERED: ATOR-507 PO (13:41)
[2024-05-11] MEDS ORDERED: ASPI-325 PO (13:41)
[2024-05-11] MEDS ORDERED: LOS25T PO (13:42)
[2024-05-11] MEDS ORDERED: LORA-655 PO (14:09)
--- NOTE | 2024-05-11 17:23 | DVHINCON2 ---
Date of service: May 11, [address] Clayton Reason for Consultation Chest pain History of Present Illness Mary العراقي is a 64 y/o Female with h/o HTN, HLD, and COPD who presented to the ED with chest pain, radiating to the left arm associated with nausea x 2-3 days prior to admission with acute worsening on day of admission. Pt is report to have been getting ready for work at time of onset. Notes prior similar episode at which time she was seen by Dr Taylor without angiogram. Review of office records shows patient was seen in February through March of 2021 but was lost to follow up after that. She did undergo NST in 03/25/2021 which showed no evid ence of reversible ischemia. EKG here revealed no evidence of ST/T wave abnormalities HS troponin level is unremarkable at <3 LDL is elevated at 158 with patient placed on Atorvastatin 40mg daily and asa 81mg daily. CXR revealed on cardiopulmonary disease ECHO revealed preserved EF at 60%, moderate LVH, mild AR and RVSP 25mmHg. Cardiology is consulted for evaluation and management of Chest pain. Family History: Cerebrovascular accident (CVA) G8 MOTHER Diabetes mellitus G8 MOTHER Allergies: Coded Allergies: NO KNOWN ALLERGIES (Unverified , 10/01/20) Home Meds Active Scripts Lorazepam (Ativan) 0.5 Mg Tab, 1 TAB PO BID PRN for 7 Days, #14 TAB Take twicw a day as needed for anxiety Prov:ROSALIND FLETCHER Katia [employer] 05/11/24 Losartan Potassium (Losartan Potassium) 25 Mg Tab, 25 MG PO BID for 30 Days, #60 TAB Prov:ROSALIND FLETCHER NP 05/11/24 Atorvastatin Calcium (Lipitor) 40 Mg Tab, 1 TAB PO DAILY, #30 TAB 5 Refills Prov:JUSTINEROSALINDSASHA Montalvo NP 05/11/24 Aspirin (Aspirin Low Dose) 81 Mg Tab, 81 MG PO DAILY for 30 Days, #30 TAB Prov:ROSALIND FLETCHER NP 05/11/24 Reported Medications Amlodipine Besylate (Amlodipine Besylate) 10 Mg Tab, 1 TAB PO DAILY 05/09/24 Discontinued Reported Medications Losartan Potassium & Hydrochlo (Hyzaar) 1 Tab Tab, 1 TAB PO DAILY, TAB 05/10/24 Rosuvastatin Calcium (Rosuvastatin Calcium) 5 Mg Tab, 1 TAB PO DAILY 05/09/24 Losartan Potassium (Losartan Potassium) 25 Mg Tab, 12.5 MG PO DAILY for 30 Days, MG 05/09/24 Current Medications Current Medications Medications (Trade) Dose Ordered Sig/Lc Route PRN Reason Start Time Stop Time Status Last Admin Losartan Potassium (Cozaar Tablet) 25 mg BID PO 05/10/24 22:00 05/11/24 09:32 Atorvastatin Calcium (Lipitor) 40 mg HS PO 05/10/24 22:00 05/10/24 22:27 Pantoprazole Sodium (Protonix Tablet) 40 mg DAILY@0600 PO 05/11/24 06:00 05/11/24 08:04 Acetaminophen (Tylenol Tablet) 650 mg Q6HP PRN PO MILD PAIN (1-3 PAIN SCALE) 05/10/24 17:30 05/11/24 09:33 Acetaminophen/ Hydrocodone Bitart ([place] 5/325MG Tab) 1 tab Q4HPRN PRN PO MODERATE PAIN (4-6 PAIN SCALE) 05/10/24 17:30 05/10/24 20:21 Morphine Sulfate 2 mg Q3HPRN PRN IV SEVERE PAIN (7-10 PAIN SCALE) 05/10/24 17:30 Nitroglycerin (Ntrostat Sublingual) 0.4 mg Q5MINP PRN SL FOR CHEST PAIN 05/10/24 17:30 Hydralazine HCl (Apresoline Injection) 10 mg Q6HP PRN IV SBP>150 05/10/24 18:00 Review of Systems Denies SOB, palpitations, dizziness, lightheadedness, syncope Vital Signs Vital Signs Date Time Temp Pulse Resp B/P (MAP) Pulse Ox O2 Delivery O2 Flow Rate FiO2 05/11/24 13:00 98.1 61 16 114/60 (78) 98 98.1 05/11/24 08:15 Room Air* 0 21 Physical Exam General: NAD, Morbid obesity Pulm: CTAB Cardio: RRR, no m/r/g Neuro: AAO x 4 Labs/Diagnostic Data Labs Test 05/10/24 06:17 05/09/24 08:50 05/09/24 08:39 Range/Units White Blood Count 3.8 #L 4.4-10.8 10^3/uL Red Blood Count 4.31 4.0-5.20 10^6/uL Hemoglobin 12.8 12.2-16.2 g/dL Hematocrit 37.8 36.0-46.0 % Mean Corpuscular Volume 87.7 80.0-100.0 fL Mean Corpuscular Hemoglobin 29.8 28.0-32.0 pg Mean Corpuscular Hemoglobin Concent 34.0 32.0-36.0 g/dL Red Cell Distribution Width 13.4 11.8-14.3 % Platelet Count 303 140-450 10^3/uL Mean Platelet Volume 7.6 6.9-10.8 fL Neutrophils (%) (Auto) 47.5 37.0-80.0 % Lymphocytes (%) (Auto) 41.4 10.0-50.0 % Monocytes (%) (Auto) 7.6 0.0-12.0 % Eosinophils (%) (Auto) 2.7 0.0-7.0 % Basophils (%) (Auto) 0.8 0.0-2.0 % Neutrophils # (Auto) 1.8 1.6-8.6 10 ^3/uL Lymphocytes # (Auto) 1.6 0.4-5.4 10 ^3/uL Monocytes # (Auto) 0.3 0-1.3 10 ^3/uL Eosinophils # (Auto) 0.1 0-0.8 10 ^3/uL Basophils # (Auto) 0 0-0.2 10 ^3/uL Nucleated Red Blood Cells 0.4 % Sodium Level 140 136-145 mmol/L Potassium Level 3.5 3.5-5.1 mmol/L Chloride Level 103 98-107 mmol/L Carbon Dioxide Level 29 20-31 mmol/L Anion Gap 8 5-15 Blood Urea Nitrogen 9 9-23 mg/dL Creatinine 0.68 0.550-1.02 mg/dL Glomerular Filtration Rate Calc 96 >90 mL/min BUN/Creatinine Ratio 13.2 10.0-20.0 Serum Glucose 114 H 74-106 mg/dL Calcium Level 10.0 8.7-10.4 mg/dL Total Bilirubin 0.7 0.2-1.0 mg/dL Aspartate Amino Transferase (AST) 14 13-40 U/L Alanine Aminotransferase (ALT) 20 7-40 U/L Alkaline Phosphatase 115 46-116 U/L Total Protein 7.5 5.7-8.2 g/dL Albumin 4.4 3.2-4.8 g/dL Urine Color Light-yellow Yellow Urine Clarity Clear Clear Urine pH 6.5 5.0-9.0 Urine Specific [place] 1.018 1.001-1.035 Urine Protein Trace H Negative Urine Ketones Negative Negative Urine Blood Negative Negative /uL Urine Nitrite Negative Negative Urine Bilirubin Negative Negative Urine Urobilinogen Normal Negative mg/dL Urine Leukocyte Esterase Negative Negative /uL Urine RBC 2 0 - 4 /hpf Urine WBC <1 0 - 5 /hpf Urine Squamous Epithelial Cells Few <5 /hpf Urine Bacteria None seen None Seen /hpf Urine Glucose Normal Normal mg/dL Troponin I High Sensitivity < 3 L </=34 ng/L Triglycerides Level 139 < 150 mg/dL Cholesterol Level 236 H < 200 mg/dL LDL Cholesterol 158 H < 100 mg/dL HDL Cholesterol 54 40-59 mg/dL Thyroid Stimulating Hormone (TSH) 1.56 0.55-4.78 uIU/mL Plan/Recommendation 64 y/o Female with h/o HTN, HLD, and COPD who presented to the ED with chest pain, radiating to the left arm associated with nausea x 2-3 days prior to admission with acute worsening on day of admission. Pt is report to have been getting ready for work at time of onset. Notes prior similar episode at which time she was seen by Dr Taylor without angiogram. Review of office records shows patient was seen in February through March of 2021 but was lost to follow up after that. She did undergo NST in 03/25/2021 which showed no evidence of reversible ischemia. EKG here revealed no evidence of ST/T wave abnormalities HS troponin level is unremarkable at <3 LDL is elevated at 158 with patient placed on Atorvastatin 40mg daily and asa 81mg daily. CXR revealed on cardiopulmonary disease ECHO revealed preserved EF at 60%, moderate LVH, mild AR and RVSP 25mmHg. Cardiology is consulted for evaluation and management of Chest pain. Assessments: Chest pain Hypertension Hyperlipidemia COPD Morbid obesity Cardiac recommendations: EKG here revealed no evidence of ST/T wave abnormalities HS troponin level is unremarkable at <3 LDL is elevated at 158 with patient placed on Atorvastatin 40mg daily and asa 81mg daily. CXR revealed on cardiopulmonary disease ECHO revealed preserved EF at 60%, moderate LVH, mild AR and RVSP 25mmHg. At this time, there is no need for ischemic workup. Chest pain does not favor cardiac etiology Patient is recommended to follow up with Dr Taylor as outpatient for continued monitoring and ongoing care. Lifestyle and risk modification counseling provided. Pt is cleared for discharge from a cardiac perspective. Management in telemetry Cardiac monitoring Hemodynamic monitoring. Avoid hypertension and hypotension. Monitor and maintain electrolytes and renal function. Supplement as needed to maintain K > 4.0 and Mg > 2.0. Monitor Hgb and transfuse if Hgb < 7.0. Lifestyle and risk modification counseling All available labs, EKGs, and images were personally reviewed Patient's status, findings, and plan of care was discussed and reviewed with supervising physician Dr. Collins, who is in agreement with current plan of care. Plan of care discussed with and agreed upon by the patient/family/Primary RN. Prognosis: Guarded Thank you for allowing me to participate in the care of this patient. Further recommendations will depend on clinical progression, hospitalist, and other consultants. Will continue to follow with Primary. If you have any questions, please do not hesitate to contact me. A total of 75 minutes was spent reviewing the patient record, examining the patient, making a diagnostic and therapeutic plan, discussing this plan with medical personnel, following up on diagnostic studies and following the patient for clinical stability including any and all procedures. At least 50% of this time was spent in direct, [id number] contact. Plan discussed with: Patient, Other (RN) Provider Statement: I have reviewed the case with my supervising physician. We have agreed with the plan of care. MORGAN SÁNCHEZ [facility] May 11, 2024 17:23
--- NOTE | 2024-05-11 21:55 | DVHPN2 ---
Progress Note - Dictate Date Seen: May 11, 2024 (Late entryPatient seen at 10:00 a.m.) Medical Necessity Reason Pt with a Central, PICC or Fol: No Subjective No new complaints Patient seen at bedside Patient denies any heartburn or GERD symptoms She is tolerating a diet Patient apparently still gets just pain with ambulation She has been evaluated by cardiology consult vital signs Vital Sign Date Time Temp Pulse Resp B/P (MAP) Pulse Ox O2 Delivery O2 Flow Rate FiO2 05/11/24 18:07 36.7 05/11/24 17:00 65 16 105/62 (76) 97 05/11/24 08:15 Room Air* 0 21 Total Intake and Output 05/10/24 05/10/24 05/11/24 15:00 23:00 07:00 Intake Total 950 ml 900 ml Balance 950 ml 900 ml medications Current Medications Medications Dose Ordered Sig/Lc Route Start Time Stop Time Status Last Admin Dose Admin Nitroglycerin 0.4 mg Q5MINP PRN SL 05/09/24 13:00 UNV Morphine Sulfate 2 mg Q30M PRN IV 05/09/24 13:00 UNV objective General: NAD, AAOX3 Chest: lung davey clear to auscultation Heart: RRR, no murmur Abdomen: non-distended, no tenderness to palpation, +BS Extremities without clubbing cyanosis or edema laboratory and microbiology Laboratory Tests 05/10/24 06:17 Test 05/10/24 06:17 Range/Units Serum Glucose 114 H 74-106 mg/dL Problems(with codes): (1) Chest pain of unknown etiology (2) Obesity (3) Abdominal muscle strain (4) Fatty liver Prognosis Plan Advance diet as tolerated Continue PPI Discharge planning the patient is cleared by Cardiology She will follow up with [facility] Services as an outpatient for elective panendoscopy Once again thank you for allowing [facility] Services to participate in the care of this patient Plan discussed with: Patient, Other (Nurse) JAMESON MELVIN MD May 11, 2024 21:55
--- NOTE | 2024-05-19 12:35 | ECG ---
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
== END 2024-05-11 18:45 | disposition home or self-care (01) | DRG 305 ==
LOC: ER 08:28 → TELE 12:52 → TELE-WESTW 18:35
PROVIDERS: ATTEND Nurse Practitioner
DX: I16.0 Hypertensive urgency (principal); I24.9 Acute ischemic heart disease, unspecified; Z68.41 Body mass index [BMI] 40.0-44.9, adult; E78.5 Hyperlipidemia, unspecified; J44.9 Chronic obstructive pulmonary disease, unspecified; I10 Essential (primary) hypertension; E87.6 Hypokalemia; R74.01 Elevation of levels of liver transaminase levels; E66.01 Morbid (severe) obesity due to excess calories; Z96.651 Presence of right artificial knee joint; K57.30 Diverticulosis of large intestine without perforation or abscess without bleeding; Z82.3 Family history of stroke; Z83.3 Family history of diabetes mellitus; Z79.82 Long term (current) use of aspirin; Z79.899 Other long term (current) drug therapy
CPT/HCPCS: 36415; 71045; 80048; 80053; 80061; 81001; 82247; 84443; 84484; 85025; 93005; 93306; 96372; 99291; G0378